=== PATIENT | male | born 1950 | race Caucasian/White ===

== ENCOUNTER → 2017-03-11 | Outpatient (CLI) | payer MEDICARE, OTHER ==
[~2017-03-11] MED LIST: ASPIR 8181 M1 PO; DILTIAZEM 24HR360 M1 PO; FLEXERIL10 MG PO; KEFLEX500 MG PO; LISINOPRIL-HCT1 EAC3 PO; LISINOPRIL40 MG PO; MEDROL DOSEPAK4 MG PO; NORCO 5/3251 TABLET PO; PERCOCET 5/31 TABLET PO; SIMVASTATIN20 MG PO; SKELAXIN800 MG PO; TRAZODONE HCL50 MG PO; VALIUM5 MG PO
== END | disposition home or self-care (01) ==
LOC: CDC 10:05
DX: Z01.810 Encounter for preprocedural cardiovascular examination (principal); S83.232D Complex tear of medial meniscus, current injury, left knee, subsequent encounter; M25.562 Pain in left knee; R94.31 Abnormal electrocardiogram [ECG] [EKG]
CPT/HCPCS: 93000